=== PATIENT | male | born 1985 | race Caucasian/White ===

== ENCOUNTER 2024-10-16 11:35 | Emergency (ER) | payer OTHER ==
[2024-10-16] MEDS ORDERED: ONDANSETRON 4 MG/2 ML VIAL ONE (12:18)
[2024-10-16] MEDS ORDERED: MORPHINE 4 MG/ML SYR ONE (12:18)
--- NOTE | 2024-10-16 13:04 | RAD REPORT ---
Exam:Elbow Right 3 View HISTORY: Right elbow pain FINDINGS: No fracture or dislocation seen
--- NOTE | 2024-10-16 13:05 | RAD REPORT ---
Exam:Wrist Right 3 View HISTORY: Right wrist pain FINDINGS: No fracture or dislocation seen If the patient continues to have symptoms to suggest an occult fracture then follow-up x-ray in 7 day s would be recommended
--- NOTE | 2024-10-16 13:23 | EDPHYS ---
Physician Documentation [facility] Name: Taqueria Mcneil Age: 39 yrs Sex: Male : 1985 Arrival Date: 10/16/2024 Time: 11:35 Bed 14 Private MD: ED Physician Adalid Stoll HPI: 10/16 19:33 This 39 yrs old Male presents to ER via Ambulatory with complaints of Wrist Injury. rt 19:33 Patient presents to the ED with pain to the right wrist after falling. Reports mild rt pain to the right elbow as well. This injury occurred last night. Denies hitting his head, the duke complaints, symptoms are moderate severity, no other aggravating or elevating factors.. Historical: - Allergies: 11:48 No Known Allergies; hb - Home Meds: 11:48 None [Active]; hb - PMHx: 11:48 None; hb - PSHx: 11:48 None; hb - Immunization history:: Adult Immunizations up to date. - Infectious Disease History:: Denies. - Social history:: Smoking status: Patient denies any tobacco usage or history of. - Family history:: not pertinent. ROS: 19:33 Constitutional: Negative for fever, chills, and weight loss, Skin: Negative for injury, rt rash, and discoloration, Neuro: Negative for headache, weakness, numbness, tingling, and seizure, 19:33 MS/extremity: Positive for pain, swelling, Exam: 19:33 Constitutional: This is a well developed, well nourished patient who is awake, alert, rt and in no acute distress. Head/Face: Normocephalic, atraumatic. Cardiovascular: Regular rate and rhythm with a normal S1 and S2. No gallops, murmurs, or rubs. Normal PMI, no JVD. No pulse deficits. Respiratory: Lungs have equal breath sounds bilaterally, clear to auscultation and percussion. No rales, rhonchi or wheezes noted. No increased work of breathing, no retractions or nasal flaring. Abdomen/GI: Soft, non-tender, with normal bowel sounds. No distension or tympany. No guarding or rebound. No evidence of tenderness throughout. 19:33 Musculoskeletal/extremity: Swelling with tenderness to the right wrist, mild snuffbox tenderness, no deformities noted, pulses, motor, sensation are intact, mild tenderness to the right elbow, no appreciable swelling. Skin appears intact on the right upper extremity. Vital Signs: 11:47 BP 129 / 86; Pulse 72; Resp 16; Temp 98.3(O); Pulse Ox 100% on R/A; Weight 104.33 kg; hb Height 5 ft. 10 in. ; Pain 8/10; 13:49 BP 107 / 71; Pulse 69; Resp 16; Pulse Ox 99% ; bp 11:47 Body Mass Index 33.00 (104.33 kg, 177.8 cm) hb 11:47 Pain Scale: Adult hb MDM: 11:56 Medical Screening Exam initiated rt 19:33 Differential diagnosis: Fracture, sprain. Data reviewed: vital signs, nurses notes, rt radiologic studies. Independent interpretation of the following test(s) in the Emergency Department X-Ray: My interpretation is No fracture seen on interpretation of x-ray images. Counseling: I had a detailed discussion with the patient and/or guardian regarding the historical points, exam findings, and any diagnostic results supporting the discharge/admit diagnosis, radiology results, the need for outpatient follow up, to return to the emergency department if symptoms worsen or persist or if there are any questions or concerns that arise at home, Discussed possibility bradycardia occult fracture, for that reason, will place patient in thumb spica splint. He will instructed to get repeat films if his symptoms do not significantly improve in the next week.. 10/16 12:04 Order name: Wrist Right 3 View XRAY; Complete Time: 13:05 rt 10/16 12:04 Order name: Elbow Right 3 View XRAY; Complete Time: 13:05 rt 10/16 13:22 Order name: Thumb Spica Splint; Complete Time: 13:33 rt Administered Medications: 12:32 Drug: morphine IVP or IV 4 mg IVP once over 4 mins Route: IVP; Infused Over: 4 mins; me1 Site: left antecubital; 13:51 Follow up: Response: No adverse reaction bp 12:32 Drug: Ondansetron IVP 4 mg IVP once; over 2 minutes Route: IVP; Site: left antecubital; me1 13:51 Follow up: Response: No adverse reaction bp Disposition Summary: 10/16/24 13:22 Discharge Ordered Notes: Location: Home rt Problem: new rt Symptoms: have improved rt Condition: Stable rt Diagnosis - Sprain of right wrist rt Followup: rt - With: Private Physician - When: 7 - 10 days - Reason: Discharge Instructions: - Discharge Summary Sheet rt - Wrist Sprain, Adult rt Forms: - Work release form eb - Medication Reconciliation Form rt - Antibiotic Education rt - Prescription Opioid Use rt - Patient Portal Instructions rt - Leadership Thank You Letter rt Prescriptions: - Tramadol 50 mg Oral tablet - take 1 tablet ORAL route every 8 hours as needed; 15 tablet; Refills: 0, rt Product Selection Permitted Signatures: Dispatcher [employer] EDTasha Nolan, RN RN Adalid Stoll MD MD rt Shelby Stacy RN RN me1 Charles Sr RN bp
--- NOTE | 2024-10-16 13:23 | ER ---
Nurse's Notes [facility] Name: Taqueria Mcneil Age: 39 yrs Sex: Male : 1985 Arrival Date: 10/16/2024 Time: 11:35 Bed 14 Private MD: Diagnosis: Sprain of right wrist Presentation: 10/16 11:47 Chief complaint: Fell onto outstretched hand last night, bony deformity noted to right hb wtist. Coronavirus screen: At this time, the client does not indicate any symptoms associated with coronavirus-19. Ebola Screen: No symptoms or risks identified at this time. Initial Sepsis Screen: Does the patient meet any 2 criteria? No. Patient's initial sepsis screen is negative. Does the patient have a suspected source of infection? No. Patient's initial sepsis screen is negative. Risk Assessment: Do you want to hurt yourself or someone else? Patient reports no desire to harm self or others. Onset of symptoms was October 15, 2024 at 23:00. 11:47 Method Of Arrival: Ambulatory 11:47 Acuity: BETINA 3 hb Triage Assessment: 12:00 General: Appears in no apparent distress. uncomfortable, Behavior is calm, cooperative, bp appropriate for age. Pain: Complains of pain in right hand. EENT: No deficits noted. Neuro: No deficits noted. Cardiovascular: No deficits noted. Respiratory: No deficits noted. GI: No signs and/or symptoms were reported involving the gastrointestinal system. : No signs and/or symptoms were reported regarding the genitourinary system. Derm: No deficits noted. Musculoskeletal: Reports pain in right hand. Injury Description: Bruise sustained to right hand. Historical: - Allergies: 11:48 No Known Allergies; hb - Home Meds: 11:48 None [Active]; hb - PMHx: 11:48 None; hb - PSHx: 11:48 None; hb - Immunization history:: Adult Immunizations up to date. - Infectious Disease History:: Denies. - Social history:: Smoking status: Patient denies any tobacco usage or history of. - Family history:: not pertinent. Screenin:49 [facility] ED Fall Risk Assessment (Adult) History of falling in the last 3 months, bp including since admission No falls in past 3 months (0 pts) Confusion or Disorientation No (0 pts) Intoxicated or Sedated No (0 pts) Impaired Gait No (0 pts) Mobility Assist Device Used No (0 pt) Altered Elimination No (0 pt) Score/Fall Risk Level 0 - 2 = Low Risk Oriented to surroundings. Abuse screen: Denies threats or abuse. Denies injuries from another. Nutritional screening: No deficits noted. Tuberculosis screening: No symptoms or risk factors identified. Assessment: 12:00 General: Appears in no apparent distress. uncomfortable, Behavior is calm, cooperative, bp appropriate for age. 13:49 Reassessment: Patient appears in no apparent distress at this time. Patient is alert, bp oriented x 3, equal unlabored respirations, skin warm/dry/pink. Vital Signs: 11:47 BP 129 / 86; Pulse 72; Resp 16; Temp 98.3(O); Pulse Ox 100% on R/A; Weight 104.33 kg; hb Height 5 ft. 10 in. ; Pain 8/10; 13:49 BP 107 / 71; Pulse 69; Resp 16; Pulse Ox 99% ; bp 11:47 Body Mass Index 33.00 (104.33 kg, 177.8 cm) hb 11:47 Pain Scale: Adult hb ED Course: 11:38 Patient arrived in ED. [id number] 11:39 Adalid Stoll MD is Attending Physician. rt 11:48 Triage completed. hb 11:48 Arm band placed on. hb 12:15 Shelby Stacy, RN is Primary Nurse. me1 12:23 Inserted saline lock: 22 gauge in left antecubital area, using aseptic technique. me1 12:42 Wrist Right 3 View XRAY In Process Unspecified. EDMS 12:42 Elbow Right 3 View XRAY In Process Unspecified. EDMS 13:49 Patient has correct armband on for positive identification. bp 13:49 No provider procedures requiring assistance completed. IV discontinued, intact, bp bleeding controlled, No redness/swelling at site. Pressure dressing applied. Orthoglass splint: Thumb spica splint applied on right forearm. Administered Medications: 12:32 Drug: morphine IVP or IV 4 mg IVP once over 4 mins Route: IVP; Infused Over: 4 mins; me1 Site: left antecubital; 13:51 Follow up: Response: No adverse reaction bp 12:32 Drug: Ondansetron IVP 4 mg IVP once; over 2 minutes Route: IVP; Site: left antecubital; me1 13:51 Follow up: Response: No adverse reaction bp Medication: 13:49 VIS not applicable for this client. bp Outcome: 13:22 Discharge ordered by . rt 13:49 Discharged to home ambulatory, with family, bp 13:49 Condition: stable 13:49 Discharge instructions given to patient, Instructed on discharge instructions, follow up and referral plans. medication usage, Demonstrated understanding of instructions, follow-up care, medications, splint care, Prescriptions given X 1, 13:51 Patient left the ED. bp Signatures: Dispatcher [employer] EDMS Tasha Butler RN RN Charles Sr RN RN bp Adalid Stoll MD MD rt Shelby Stacy RN RN me1 Queta Peter 3
[2024-10-16 14:23] VITALS: BP 107/71; TEMP 98.3; O2SAT 99
== END 2024-10-16 13:51 | disposition home or self-care (01) ==
LOC: ER 11:35
DX: S63.501A Unspecified sprain of right wrist, initial encounter (principal); W18.30XA Fall on same level, unspecified, initial encounter
CPT/HCPCS: 73080; 73110; 96375; 96374; 99284; J2405